=== PATIENT | female | born 1995 | race Caucasian/White ===

== ENCOUNTER 2021-04-26 18:16 | Observation (INO) | payer MEDICAID ==
[~2021-04-26] VITALS: Ht 167.6 cm; Wt 83.9 kg
[2021-04-26] MEDS ORDERED: NACL 0.9% 1,000 ML IV SCH (19:30)
[2021-04-26] MEDS ORDERED: cefTRIAXone 2,000 MG in DEXTROSE 5% 100 ML IV SCH (19:30)
[2021-04-26] MEDS ORDERED: cefTRIAXone 1,000 MG VIAL ONE (19:41)
[2021-04-26] MEDS ORDERED: PNV91TAB8 PO (20:20)
== END 2021-04-26 20:47 | disposition home or self-care (01) ==
LOC: MLD 18:16
PROVIDERS: ADMIT Obstetrics & Gynecology; ATTEND Obstetrics & Gynecology
DX: O26.893 Other specified pregnancy related conditions, third trimester (principal); R10.9 Unspecified abdominal pain; Z3A.31 31 weeks gestation of pregnancy
CPT/HCPCS: 59025; 81000; 96365; G0378; J0696; J7060

== ENCOUNTER 2022-04-19 11:01 | Emergency (ER) | payer OTHER ==
[~2022-04-19] VITALS: Ht 167.6 cm; Wt 79.6 kg
[~2022-04-19 11:01] MED LIST: PNV91TAB8 PO
[2022-04-19 11:08] VITALS: BP 132/70
--- NOTE | 2022-04-19 11:18 | NUR ---
BIB SELF C/O LEFT FOOT PAIN, SWELLING S/P FALL X 2 DAYS.
[2022-04-19] MEDS ORDERED: IBUP-2213 PO (12:13)
[2022-04-19 12:35] VITALS: BP 132/70
--- NOTE | 2022-04-19 12:36 | NUR ---
Patient discharged with v/s stable. Written and verbal after care instructions given and explained. Patient alert, oriented and verbalized understanding of instructions. Wheel Chair Assisted to car. All questions addressed prior to discharge. ID band removed. Patient advised to follow up with PMD. Rx of ibuprofen (sent) given. Patient educated on indication of medication including possible reaction and side effects. Opportunity to ask questions provided and answered. copy of xrays given
== END 2022-04-19 12:36 | disposition home or self-care (01) ==
LOC: MED 11:01
DX: S93.602A Unspecified sprain of left foot, initial encounter (principal); Z79.899 Other long term (current) drug therapy; W22.8XXA Striking against or struck by other objects, initial encounter; Y93.89 Activity, other specified; Y92.89 Other specified places as the place of occurrence of the external cause; Y99.8 Other external cause status
CPT/HCPCS: 73630; 99283